=== PATIENT | male | born 1970 | race Caucasian/White ===

== ENCOUNTER 2023-01-03 13:45 | Outpatient (CLI) | payer BC ==
[2023-01-03 17:40] LABS: BASOPHILS % (AUTO) 0.3 %; EOSINOPHILS # (AUTO) 0.1 10^3/uL (0.0-0.7); EOSINOPHILS % (AUTO) 1.8 %; HCT - HEMATOCRIT 45.5 % (42.0-52.0); LYMPHOCYTES # (AUTO) 1.8 10^3/uL (1.5-3.5); MEAN CORPUSCULAR HEMOGLOBIN 30.1 pg (27.0-31.0); MEAN CORPUSCULAR VOLUME 91.2 fL (80.0-94.0); MEAN PLATELET VOLUME 10.4 fL (7.4-11.4); MONOCYTES # (AUTO) 0.6 10^3/uL (0.0-1.0); MONOCYTES % (AUTO) 9.3 %; NEUTROPHILS % (AUTO) 60.4 %; PLT - PLATELET COUNT 332 10^3/uL (130-450); RED BLOOD COUNT 4.99 10^6/uL (4.70-6.10); WHITE BLOOD COUNT 6.6 x10^3/uL (4.8-10.8)
[2023-01-03 17:42] LABS: CALCIUM 9.6 mg/dL (8.5-10.3); CREATININE 0.9 mg/dL (0.6-1.2); POTASSIUM 4.3 mmol/L (3.5-5.0)
== END 2023-01-03 14:00 | disposition home or self-care (01) ==
LOC: LAB.N 13:45
PROVIDERS: ATTEND Physician Assistant Medical
DX: R55 Syncope and collapse (principal)
CPT/HCPCS: 36415; 80048; 84443; 85025

== ENCOUNTER 2023-01-12 10:55 | Outpatient (CLI) | payer BC ==
[2023-01-12 18:33] LABS: ALBUMIN 4.3 g/dL (3.2-5.5); ALBUMIN/GLOBULIN RATIO 1.1 (1.0-2.2); ALKALINE PHOSPHATASE 59 IU/L (42-121); ALT ALANINE AMINOTRANSFERASE 20 IU/L (10-60); AST ASPARTATE AMINOTRANSFERASE 19 IU/L (10-42); BILIRUBIN,TOTAL 0.5 mg/dL (0.2-1.0); BUN - BLOOD UREA NITROGEN 16 mg/dL (6-20); CALCIUM 9.2 mg/dL (8.5-10.3); CARBON DIOXIDE - CO2 28 mmol/L (21-32); CHLORIDE 107 mmol/L (101-111); CHOL/HDL RATIO 5.1 (<5.0); CHOLESTEROL 224 mg/dL; GFR - MDRD 79 (>89); GLUCOSE 93 mg/dL (70-100); HDL CHOLESTEROL 44 mg/dL; LDL CHOLESTEROL,CALCULATED 165 mg/dL; LDL/HDL RATIO 3.8 (<3.6); POTASSIUM 3.9 mmol/L (3.5-5.0); SODIUM 140 mmol/L (135-145); TOTAL PROTEIN 8.1 g/dL (6.7-8.2); TRIGLYCERIDES 74 mg/dL; VLDL CHOLESTEROL 15 mg/dL
== END 2023-01-12 10:56 | disposition home or self-care (01) ==
LOC: LAB.N 10:55
PROVIDERS: ATTEND Physician Assistant
DX: Z13.220 Encounter for screening for lipoid disorders (principal); E87.6 Hypokalemia
CPT/HCPCS: 36415; 80053; 80061; 83721

== ENCOUNTER 2023-01-26 07:31 | Outpatient (CLI) | payer BC ==
--- NOTE | 2023-01-26 09:54 | Ultrasound Report ---
PROCEDURE: Carotid Doppler Complete INDICATIONS: SYNCOPE TECHNIQUE: Color and pulse Doppler interrogation was performed of both carotid systems, with image documentation and velocity measurements. COMPARISON: None. FINDINGS: Right side: Brachial blood pressure: 133/88 mm Hg. Common carotid artery peak systolic velocity: 54 cm/sec. Internal carotid artery peak systolic velocity: 64 cm/sec. Internal carotid artery end diastolic velocity: 31 cm/sec. External carotid artery peak systolic velocity: 49 cm/sec. ICA/CCA peak systolic ratio: 1.2 . Singh scale imaging description: Mild plaque bifurcates Percent internal carotid artery stenosis: Less than 50% . Vertebral artery: Flow direction is antegrade. Left side: Brachial blood pressure: 1.034 mm Hg. Common carotid artery peak systolic velocity: 65 cm/sec. Internal carotid artery peak systolic velocity: 70 cm/sec. Internal carotid artery end diastolic velocity: 33 cm/sec. External carotid artery peak systolic velocity: 88 cm/sec. ICA/CCA peak systolic ratio: 1.1 . Singh scale imaging description: No visualized Percent internal carotid artery stenosis: No hemodynamically significant stenosis . Vertebral artery: Flow direction is antegrade. IMPRESSION: Less than 50% stenosis within the right internal carotid artery. The estimate of stenosis included in the report of the imaging study was calculated using the NASCET method Reviewed by: Iraida Coronado MD on 01/26/2023 9:52 AM PDT Approved by: Iraida Coronado MD on 01/26/2023 9:52 AM PDT Station ID: [id number]
== END 2023-01-26 07:32 | disposition home or self-care (01) ==
LOC: DI 07:31
PROVIDERS: ATTEND Physician Assistant
DX: R55 Syncope and collapse (principal); I65.22 Occlusion and stenosis of left carotid artery
CPT/HCPCS: 93880

== ENCOUNTER 2023-02-25 14:24 | Outpatient (CLI) | payer BC | END 2023-02-25 14:25 | disposition home or self-care (01) | LOC: MAC.MOP 14:24 | PROVIDERS: ATTEND Physician Assistant | DX: R00.2 Palpitations (principal); R55 Syncope and collapse | CPT/HCPCS: 93246 ==

== ENCOUNTER 2023-03-22 11:27 | Outpatient (CLI) | payer BC | END 2023-03-22 11:28 | disposition home or self-care (01) | LOC: MAC.INF 11:27 | PROVIDERS: ATTEND Physician Assistant | DX: I47.1 Supraventricular tachycardia (principal); I49.1 Atrial premature depolarization; I49.3 Ventricular premature depolarization | CPT/HCPCS: 93248 ==

== ENCOUNTER 2023-03-24 14:34 | Outpatient (CLI) | payer BC | END 2023-03-24 14:35 | disposition home or self-care (01) | LOC: DI 14:34 | PROVIDERS: ATTEND Physician Assistant | DX: R00.2 Palpitations (principal); R55 Syncope and collapse | CPT/HCPCS: 93306 ==